=== PATIENT | female | born 1975 | race Caucasian/White ===

== ENCOUNTER 2019-12-04 22:33 | Emergency (ER) | payer BC, SELFPAY ==
[2019-12-04 22:36] VITALS: BP 153/77; PULSE 77; RESP 18; TEMP 36.4; O2SAT 989
--- NOTE | 2019-12-04 22:51 | ED_ITS ---
HPI - Ear Problem General Chief complaint: Ear Stated complaint: rt ear pain Time Seen by Provider: 12/04/19 22:42 Source: patient Mode of arrival: Ambulatory Limitations: no limitations History of Present Illness HPI Narrative: 44-year-old female here for evaluation of right ear pain. Patient states she was lying in bed when she had a sudden onset of pain in the right ear. No sinus congestion. Has had some sore throat. Has not tried anything for symptoms prior to arrival. Related Data Previous Rx's Medication Instructions Recorded ciprofloxacin-dexamethasone 4 drop EAR-RIGHT BID 7 Days #7.5 ml 12/04/19 [Ciprodex] Allergies Allergy/AdvReac Type Severity Reaction Status Date / Time No Known Drug Allergies Allergy Unverified 12/29/18 09:36 Review of Systems Constitutional Constitutional: Denies fever(s) ENT Ears, Nose, Mouth, and Throat: Denies vertigo, Denies dizziness, Reports ear discharge, Reports otalgia, Denies nose pain, Reports sore throat and Denies throat swelling Integumentary/Breasts Skin/Breast: Denies rash Neurologic Neurologic: Denies vertigo and Denies dizziness Hematologic/Lymphatic Hematologic/Lymphatic: Denies easy bleeding and Denies easy bruising Allergic/Immunologic Allergic/Immunologic: Denies throat swelling Patient History Medical History Healthy adult (Acute) Social History Smoking Status: Never smoker Smoking Status: Never smoker Exam Initial Vital Signs Initial Vital Signs: Vital Signs Temperature 97.6 F 12/04/19 22:36 Pulse Rate 77 12/04/19 22:36 Respiratory Rate 18 12/04/19 22:36 Blood Pressure 153/77 H 12/04/19 22:36 Pulse Oximetry 989 H 12/04/19 22:36 Const General: cooperative, healthy appearing, comfortable, well developed and well groomed Limitations: mental status not altered HENIL Head: normal to inspection and normocephalic Ears: TM normal on the left, EAC abnormal erythema on the right, edema on the right and otic discharge bloody on the right and TM abnormal erythematous on the right Resp Effort & Inspection: normal respiratory effort Skin Lesions: no lesions Rashes: no rashes Extrem General: capillary refill normal Course Orders Ordered: Discontinued Medications Ciprofloxacin/Dexamethasone (Ciprodex Otic Susp) 4 drops EAR-RIGHT NOW ONE Stop: 12/04/19 22:52 Last Admin: 12/04/19 23:20 Dose: 4 drop Documented by: SEAN Vital Signs Vital signs: Vital Signs - 8 hr 12/04/19 22:36 12/04/19 23:40 Temperature 97.6 F Pulse Rate 77 71 Respiratory Rate 18 16 Blood Pressure 153/77 H 183/92 H Pulse Oximetry 989 H 98 Medical Decision Making MDM Narrative Medical decision making narrative: Patient has blood in the right external auditory canal. Is also red and slightly edematous. I can see the tympanic membrane however not completely. Patient did try Valsalva maneuver and I did not see the tympanic membrane move. There is potential for a tympanic membrane rupture. Will place her on Ciprodex drops. She was given 1st dose here in the ER. She was given return precautions and follow-up instructions. She expressed understanding and agreement plan. Discharge Plan Departure Patient Disposition: Home Clinical Impression: Otitis externa Qualifiers: Otitis externa type: hemorrhagic Chronicity: acute Laterality: right Qualified Code(s): H60.321 - Hemorrhagic otitis externa, right ear Discharge Date/Time: 12/04/19 23:41 Instructions: DI for Otitis Externa Activity Restrictions/Additional Instructions: Use the antibiotic drops as directed. Recommend that you contact the health client resource specialist here at the hospital at [phone]. They can help you establish a primary provider. If her symptoms do not improve you can try calling the [facility] ear nose and throat group at [phone]. Also recommend that you start on antihistamine such as Claritin or Syl or Zyrtec like we discussed. Prescriptions: New Ciprodex 0.3-0.1 % drops,suspension 4 drop EAR-RIGHT BID 7 Days Qty: 7.5 RF: 0 Referrals: Jess Jaquez PA-C [Primary Care Provider] -
[2019-12-04] MEDS: CIPROFLOXACIN/DEXAMETH OTIC SUSP 4 DROPS EAR-RIGHT (23:20)
[2019-12-04 23:40] VITALS: BP 183/92; PULSE 71; RESP 16; O2SAT 98
== END 2019-12-04 23:41 | disposition home or self-care (01) ==
PROVIDERS: Emergency Provider Emergency Medicine; PCP Physician Assistant
DX: H60.321 Hemorrhagic otitis externa, right ear (principal)
CPT/HCPCS: 99281; 99283